=== PATIENT | female | born 1950 ===

== ENCOUNTER 2017-10-20 14:09 | Emergency (ER) | payer OTHER ==
[2017-10-20 14:40] VITALS: RESP 18
--- NOTE | 2017-10-20 17:54 | C.PDOC ---
History Of Present Illness 67 y/o female presents to ED with complaints of productive white sputum cough, nasal congestion and headache for 5 days. Patient states she went to see PMD 3 days ago, given Augmentin and Promethazine with no improvement. Patient is unable to sleep for 2 nights secondary to cough and reports similar episode 1 year ago when diagnosed with bronchitis. Patient did not receive flu vaccine. No other complaints at this time Chief Complaint (Nursing): Cough, Cold, Congestion History Per: Patient History/Exam Limitations: no limitations Onset/Duration Of Symptoms: Days Current Symptoms Are (Timing): Still Present Past Medical History Reviewed: Historical Data, Nursing Documentation, Vital Signs Vital Signs: Last Vital Signs Temp 98 F 10/20/17 18:30 Pulse 78 10/20/17 18:30 Resp 18 10/20/17 18:30 BP 132/86 10/20/17 18:30 Pulse Ox 99 10/20/17 18:30 - Medical History PMH: HTN, Hypercholesterolemia Surgical History: Tonsillectomy Family History: States: No Known Family Hx - Social History Hx Tobacco Use: No Hx Alcohol Use: No Hx Substance Use: No - Immunization History Hx Tetanus Toxoid Vaccination: Yes Hx Influenza Vaccination: No Hx Pneumococcal Vaccination: No Review Of Systems Except As Marked, All Systems Reviewed And Found Negative. ENT: Positive for: Nose Congestion Respiratory: Positive for: Cough, Sputum Physical Exam - Physical Exam Appears: Non-toxic, No Acute Distress Skin: Warm, Dry, No Rash Head: Atraumatic, Normacephalic Eye(s): bilateral: Normal Inspection Ear(s): Bilateral: Normal Oral Mucosa: Moist Throat: Normal, No Erythema, No Exudate Neck: Normal ROM, Supple Cardiovascular: Rhythm Regular Respiratory: Normal Breath Sounds, No Rales, No Rhonchi, No Wheezing Gastrointestinal/Abdominal: Soft, No Tenderness, No Guarding, No Rebound Neurological/Psych: Oriented x3 ED Course And Treatment O2 Sat by Pulse Oximetry: 98 (RA) Pulse Ox Interpretation: Normal - Radiology CXR: Interpreted by Me, Viewed By Me CXR Interpretation: Yes: No Acute Disease. No: Infiltrates, COPD, Fracture Progress Note: Advised patient to continue medicaitons at home. Will prescribed additional medications for home. Advised to follow up with pmd in 2 days. Disposition Counseled Patient/Family Regarding: Studies Performed, Diagnosis, Need For Followup, Rx Given - Disposition Disposition: HOME/ ROUTINE Disposition Time: 18:04 Condition: STABLE Additional Instructions: follow up with your doctor in 2 days call to make an appointment take medications as prescribed return to ED if symptoms worsens or progress Prescriptions: Benzonatate [Tessalon Perles] 100 mg PO BID PRN #20 sgl PRN Reason: Cough And Congestion predniSONE [predniSONE Tab] 50 mg PO DAILY #4 tab Instructions: Acute Bronchitis Forms: Gen Discharge Inst Armenian, [employer] (Armenian) Print Language: IRAQI - Clinical Impression Clinical Impression: Bronchitis - Scribe Statement The provider has reviewed the documentation as recorded by the Ameibranulfo Jack All medical record entries made by the Clinton were at my direction and personally dictated by me. I have reviewed the chart and agree that the record accurately reflects my personal performance of the history, physical exam, medical decision making, and the department course for this patient. I have also personally directed, reviewed, and agree with the discharge instructions and disposition.
--- NOTE | 2017-10-20 18:25 | RAD ---
HISTORY: cough COMPARISON: Chest x-ray performed 07/17/13 TECHNIQUE: Chest PA and lateral FINDINGS: LUNGS: No focal consolidation. Nodular opacity at the left lung base likely related to nipple shadow. Please note that chest x-ray has limited sensitivity for the detection of pulmonary masses. PLEURA: No significant pleural effusion identified. No definite pneumothorax . CARDIOVASCULAR: Heart size appears within normal limits. Atherosclerotic calcification of the aorta. OSSEOUS STRUCTURES: Degenerative changes of the spine. VISUALIZED UPPER ABDOMEN: Unremarkable. OTHER FINDINGS: None. IMPRESSION: No acute findings identified. See above.
[2017-10-20 18:30] VITALS: BP 132/86; PULSE 78; TEMP 98
[2017-10-21 07:29] VITALS: O2SAT 98
== END 2017-10-20 18:30 | disposition home or self-care (01) ==
LOC: C.ER 14:09 → EDBD 14:09 → C.ER 18:30
DX: J40 Bronchitis, not specified as acute or chronic (principal); I10 Essential (primary) hypertension; E78.00 Pure hypercholesterolemia, unspecified